=== PATIENT | female | born 1965 | race Caucasian/White ===

== ENCOUNTER 2017-09-07 10:48 | Emergency (ER) | payer BC, OTHER ==
[~2017-09-07] VITALS: Ht 157.5 cm; Wt 108.9 kg
--- NOTE | ~2017-09-07 | EKG ---
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
[2017-09-07] MEDS ORDERED: DIOVAN320 MG PO (11:13)
[2017-09-07] MEDS ORDERED: LASIX 40 MG TAB40 M2 PO (11:13)
[2017-09-07] MEDS ORDERED: METOPROLOL SUC100 MG PO (11:13)
[2017-09-07 12:41] LABS: HEMATOCRIT 37.6 % (37.0-47.0); MCH 29.8 pg (26.0-34.0); MCHC 31.9 g/dL (28.0-37.0); MCV 93.4 fL (80.0-100.0); PLATELET COUNT 176 thou/uL (150-400); RBC 4.02 mil/uL (4.20-5.00); RDW 17.6 % (10.5-14.5); WBC 7.3 thou/uL (4.0-11.0)
[2017-09-07 12:54] LABS: ANION GAP 13 mmol/L (7-16); BUN 68 mg/dL (7-18); CALCIUM 8.9 mg/dL (8.5-10.1); CHLORIDE 107 mmol/L (98-107); CO2 17 mmol/L (21-32); CREATININE 3.8 mg/dL (0.6-1.0); GLUCOSE 97 mg/dL (74-106); POTASSIUM 5.5 mmol/L (3.5-5.1); SODIUM 137 mmol/L (136-145)
[2017-09-07 13:03] LABS: ALBUMIN 3.5 g/dL (3.4-5.0); SGOT 18 U/L (15-37); SGPT 25 U/L (30-65); TOTAL BILIRUBIN 0.3 mg/dL (<0.1-1.0); TOTAL PROTEIN 8.2 g/dL (6.4-8.2); TROPONIN-I < 0.04 ng/mL (<0.06)
[2017-09-07 13:53] LABS: ABSOLUTE NEUTROPHILS 5.3 thou/uL (1.4-8.2); ANISOCYTOSIS 1+
[2017-09-07] MEDS ORDERED: PREDNISONE 20 M20 MG PO (15:37)
[2017-09-07] MEDS ORDERED: ALBUTEROL2.5 MG/31 INH (15:37)
[2017-09-07] MEDS ORDERED: TESSALON PERLE100 MG PO (15:37)
[2017-09-07 15:48] VITALS: BP 175/94
== END 2017-09-07 15:50 | disposition home or self-care (01) ==
LOC: ER 10:48
PROVIDERS: Nurse Practitioner Family
DX: J20.9 Acute bronchitis, unspecified (principal); I12.9 Hypertensive chronic kidney disease with stage 1 through stage 4 chronic kidney disease, or unspecified chronic kidney disease; N18.4 Chronic kidney disease, stage 4 (severe); E87.5 Hyperkalemia; N25.89 Other disorders resulting from impaired renal tubular function

== ENCOUNTER 2018-04-22 17:09 | Emergency (ER) | payer BC, OTHER ==
[~2018-04-22] VITALS: Ht 157.5 cm; Wt 106.6 kg
[~2018-04-22 17:09] MED LIST: ALBUTEROL2.5 MG/31 INH; DIOVAN320 MG PO; LASIX 40 MG TAB40 M2 PO; METOPROLOL SUC100 MG PO; PREDNISONE 20 M20 MG PO; TESSALON PERLE100 MG PO
[2018-04-22] MEDS ORDERED: HYDRALAZINE 2525 MG PO (17:47)
[2018-04-22] MEDS ORDERED: BENICAR40 MG PO (17:47)
[2018-04-22 17:48] LABS: ABSOLUTE NEUTROPHILS 5.1 thou/uL (1.4-8.2); BASOPHILS 0.8 % (0.0-2.0); EOSINOPHILS 4.8 % (0.0-3.0); HEMATOCRIT 34.9 % (37.0-47.0); HEMOGLOBIN 11.2 gm/dL (12.0-15.0); LYMPHOCYTES 13.2 % (24.0-44.0); MCH 29.8 pg (26.0-34.0); MONOCYTES 10.4 % (1.0-8.0); PLATELET COUNT 204 thou/uL (150-400); POLYS 70.8 % (36.0-66.0); RBC 3.76 mil/uL (4.20-5.00); WBC 7.2 thou/uL (4.0-11.0)
[2018-04-22 17:57] LABS: ANION GAP 10 mmol/L (7-16); BUN 60 mg/dL (7-18); CALCIUM 9.2 mg/dL (8.5-10.1); CHLORIDE 111 mmol/L (98-107); CO2 21 mmol/L (21-32); CREATININE 3.7 mg/dL (0.6-1.0); GLUCOSE 106 mg/dL (74-106); POTASSIUM 5.2 mmol/L (3.5-5.1); SODIUM 142 mmol/L (136-145)
[2018-04-22 18:05] LABS: ALBUMIN 3.1 g/dL (3.4-5.0); SGOT 25 U/L (15-37); SGPT 55 U/L (30-65); TOTAL BILIRUBIN 0.3 mg/dL (<0.1-1.0); TOTAL PROTEIN 6.9 g/dL (6.4-8.2); TROPONIN-I <0.06 ng/mL (<0.06)
[2018-04-22] MEDS ORDERED: DOXYCYCLINE 10100 MG PO (19:56)
[2018-04-22] MEDS ORDERED: PREDNISONE 20 M20 M1 PO (19:56)
[2018-04-22 20:04] VITALS: BP 145/76
--- NOTE | 2018-04-23 08:22 | EKG ---
[address] [employer] [place] [address] ELECTROCARDIOGRAM REPORT Name: INDIRA PARR 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 : 1965 Requested By: Ronni Llanes Order Number: [id number] MD: Franky Pennington Measurements Intervals [place] Rate: 73 P: 47 CT: 154 QRS: 52 QRSD: 92 T: 61 QT: 379 QTc: 418 Interpretive Statements Sinus rhythm No significant abnormality Compared to ECG 09/07/2017 11:37:24 No significant changes Electronically Signed On 04-23-2018 8:22:23 HAND FINISHER by Franky Pennington [email or web address] <ELECTRONICALLY SIGNED> By: Franky Pennington MD, [facility] 04/23/18 0822 1733 1733 Franky Pennington MD, FACC /EPI
== END 2018-04-22 20:04 | disposition home or self-care (01) ==
LOC: ER 17:09
PROVIDERS: Physician Assistant
DX: R05 Cough (principal); R06.02 Shortness of breath; R60.0 Localized edema; I12.9 Hypertensive chronic kidney disease with stage 1 through stage 4 chronic kidney disease, or unspecified chronic kidney disease; N18.4 Chronic kidney disease, stage 4 (severe)

== ENCOUNTER 2019-03-19 13:15 | Emergency (ER) | payer BC, OTHER ==
[~2019-03-19] VITALS: Ht 157.5 cm; Wt 88.5 kg
[~2019-03-19 13:15] MED LIST changes: +BENICAR40 MG PO; +DOXYCYCLINE 10100 MG PO; +HYDRALAZINE 2525 MG PO; +PREDNISONE 20 M20 M1 PO
[2019-03-19] MEDS ORDERED: PROAIR HFA8.5 GM INH (16:21)
[2019-03-19] MEDS ORDERED: TESSALON PERLE100 MG PO (16:21)
[2019-03-19] MEDS ORDERED: TAMIFLU75 MG PO (16:21)
[2019-03-19] MEDS ORDERED: PREDNISONE 20 M20 MG PO (16:21)
[2019-03-19 17:03] VITALS: BP 105/61
== END 2019-03-19 17:03 | disposition home or self-care (01) ==
LOC: ER 13:15
DX: J11.1 Influenza due to unidentified influenza virus with other respiratory manifestations (principal); N18.4 Chronic kidney disease, stage 4 (severe); I12.9 Hypertensive chronic kidney disease with stage 1 through stage 4 chronic kidney disease, or unspecified chronic kidney disease; Z98.890 Other specified postprocedural states

== ENCOUNTER 2019-04-02 20:07 | Inpatient (IN) | payer BC, OTHER ==
[~2019-04-02] VITALS: Ht 157.5 cm; Wt 95.3 kg
--- NOTE | ~2019-04-02 | HC ---
[facility] [place] [address] CONSULTATION Name: INDIRA PARR Room #: 464-P ADM IN M.R.#: [id number] Admission: 04/02/19 Attend Phys: Carolyn Ramos MD Discharge: Date of : 69 Report #: [id number] THIS REPORT FOR: //name// CC: Carolyn Rodriguez REASON FOR CONSULTATION: End-stage renal disease, maintained on peritoneal dialysis. REASON FOR PRESENTATION: Abdominal pain. HISTORY OF PRESENT ILLNESS: A 53-year-old who is a dialysis patient, maintained on peritoneal dialysis. She has started peritoneal dialysis 6 months ago. She is not aware the reason of her end-stage renal disease. She has history of hypertension. She tells me that she had an incident where her bladder was nicked during the surgery to place a PD catheter. The details of this event is not available for me. The patient has been having some abdominal pain on the last drain of her peritoneal dialysis. She presented for further evaluation. She denies any fever or chills. No previous peritonitis. She was found to have a tiny abdominal wall fluid collection to the right of the midline associated with what the patient describes as erythema around the area. PAST MEDICAL HISTORY: 1. End-stage renal disease. 2. Hypertension. 3. Recent PD catheter placement. 4. Right wrist surgery. MEDICATIONS: 1. Sodium bicarbonate. 2. Lasix. 3. Folic acid. 4. Calcitriol. 5. Sevelamer carbonate. ALLERGIES: None. SOCIAL HISTORY: She denies drug or alcohol abuse. FAMILY HISTORY: Significant for hypertension. REVIEW OF SYSTEMS: GENERAL: No fever or chills. CARDIOVASCULAR: No chest pain or palpitation. PULMONARY: No cough or hemoptysis. GASTROINTESTINAL: As per the history of present illness. GENITOURINARY: No frequency, no urgency. [facility] [address] [place] [address] CONSULTATION Name: SOLANGEMAHESHINDIRA Room #: 464-P [facility] IN ..#: [id number] Admission: 04/02/19 Attend Phys: Carolyn Ramos MD Discharge: Date of : 69 Report #: [id number] MUSCULOSKELETAL: No back pain, no muscle stiffness. SKIN: Slight induration around the PD catheter. NEUROLOGICAL: No headache, no dizziness. PHYSICAL EXAMINATION: GENERAL: She is alert, oriented. VITAL SIGNS: Blood pressure is 104/67, temperature is 37.2. HEAD AND NECK: No jugular venous distention. CHEST: Clear to auscultation bilaterally. CARDIOVASCULAR: Regular with no rub detected. ABDOMEN: Soft with no tenderness at all. Slight induration around the PD catheter exit site. LOWER EXTREMITIES: +1 edema. LABORATORY VALUES: Reviewed. White blood cell count was 12.8 yesterday and is down to 6.2. Sodium is 137, potassium is 5.5, BUN is 75, creatinine is 8.3. ASSESSMENT, IMPRESSION AND PLAN: 1. End-stage renal disease. 2. Peritoneal dialysis status. 3. Hypertension. 4. Seroma around the PD catheter. This does not seem to be a peritonitis event or episode. I will send the peritoneal fluid for further studies. This collection around the catheter seems to be a seroma and this could initiate what seems to be an exit site infection given the induration around her catheter. 5. Heart rate has an exit site infection with oral antibiotics, pending Gram stain, cell count, culture and sensitivity. 6. We will follow on those with the patient's primary retail service lead merchandiser to decide about appropriate antibiotic. 7. Continue the usual peritoneal dialysis regimen. By: 0837 31 Lizandro Logan MD /nt
[~2019-04-02 20:07] MED LIST changes: +PROAIR HFA8.5 GM INH; +TAMIFLU75 MG PO
[2019-04-02 20:09] VITALS: BP 102/58
[2019-04-02 21:07] LABS: ABSOLUTE NEUTROPHILS 10.7 thou/uL (1.4-8.2); BASOPHILS 0.5 % (0.0-2.0); EOSINOPHILS 0.4 % (0.0-3.0); HEMATOCRIT 29.9 % (37.0-47.0); HEMOGLOBIN 9.6 gm/dL (12.0-15.0); LYMPHOCYTES 7.4 % (24.0-44.0); MCH 32.7 pg (26.0-34.0); MCHC 32.1 g/dL (28.0-37.0); MONOCYTES 7.5 % (1.0-8.0); PLATELET COUNT 230 thou/uL (150-400); POLYS 84.2 % (36.0-66.0); RBC 2.93 mil/uL (4.20-5.00); RDW 14.8 % (10.5-14.5); WBC 12.8 thou/uL (4.0-11.0)
[2019-04-02 21:24] LABS: ANION GAP 12 mmol/L (7-16); BUN 74 mg/dL (7-18); CALCIUM 8.5 mg/dL (8.5-10.1); CHLORIDE 101 mmol/L (98-107); CO2 23 mmol/L (21-32); CREATININE 8.2 mg/dL (0.6-1.0); GLUCOSE 102 mg/dL (74-106); POTASSIUM 5.5 mmol/L (3.5-5.1); SODIUM 136 mmol/L (136-145)
[2019-04-02 21:30] LABS: ALBUMIN 2.5 g/dL (3.4-5.0); DIRECT BILIRUBIN < 0.1 mg/dL (<0.1-0.2); LIPASE 353 U/L (73-393); SGOT 26 U/L (15-37); SGPT 29 U/L (30-65); TOTAL BILIRUBIN 0.4 mg/dL (<0.1-1.0); TOTAL PROTEIN 6.8 g/dL (6.4-8.2)
[2019-04-02] MEDS ORDERED: ANTACID650 MG PO (21:47)
[2019-04-02] MEDS ORDERED: RENVELA800 MG PO (21:49)
[2019-04-02] MEDS ORDERED: RENAL-VITE TAB0.8 MG PO (21:49)
[2019-04-02] MEDS ORDERED: CALCITRIOL0.5 MCG PO (21:50)
[2019-04-02 23:11] VITALS: BP 130/86
[2019-04-02 23:27] VITALS: BP 130/86
[2019-04-02 23:45] VITALS: BP 124/68
[2019-04-03 04:09] VITALS: BP 119/60
[2019-04-03 07:21] LABS: HEMATOCRIT 28.8 % (37.0-47.0); HEMOGLOBIN 9.2 gm/dL (12.0-15.0); MCH 32.8 pg (26.0-34.0); MCHC 31.8 g/dL (28.0-37.0); MCV 103.1 fL (80.0-100.0); RBC 2.79 mil/uL (4.20-5.00); WBC 6.2 thou/uL (4.0-11.0)
[2019-04-03 07:25] LABS: CALCIUM 8.4 mg/dL (8.5-10.1); CREATININE 8.3 mg/dL (0.6-1.0); POTASSIUM 5.5 mmol/L (3.5-5.1)
[2019-04-03 07:30] VITALS: BP 104/67
[2019-04-03 15:25] VITALS: BP 110/67
[2019-04-03 16:59] LABS: BF NUCLEATED CELLS 5784; BF RBC 1146
[2019-04-03 17:04] LABS: TOTAL VOLUME 100 mL
[2019-04-03 17:05] LABS: CLARITY CLOUDY; COLOR STRAW
[2019-04-03 18:05] LABS: BF MACROPHAGE 6; BF NEUTROPHILS 93; SOURCE ABDOMINAL
[2019-04-03 19:35] VITALS: BP 111/60
[2019-04-04 08:35] VITALS: BP 100/64
[2019-04-04 20:45] VITALS: BP 100/60
[2019-04-04 23:07] LABS: HEPATITIS B SURFACE AG Negative (Negative)
[2019-04-05 08:00] VITALS: BP 109/58
[2019-04-05 15:00] VITALS: BP 108/58
[2019-04-05 19:11] VITALS: BP 111/69
[2019-04-06 07:48] VITALS: BP 123/75
[2019-04-06] MEDS ORDERED: TRAMADOL 50 MG50 MG PO (09:09)
[2019-04-06 09:23] LABS: CALCIUM 9.4 mg/dL (8.5-10.1); POTASSIUM 4.5 mmol/L (3.5-5.1)
[2019-04-06 09:25] LABS: CREATININE 6.6 mg/dL (0.6-1.0)
[2019-04-06 14:48] VITALS: BP 123/75
== END 2019-04-06 15:20 | disposition home or self-care (01) | DRG 919 ==
LOC: ER 20:07 → EROBS 22:57 → 4W 22:57 → ENTRNSPT 04-06 15:27 → EDTRNSPTSTS 04-06 15:30
PROVIDERS: Hospitalist; Nurse Practitioner; Nurse Practitioner Family; ADMIT Hospitalist
PROC: 5A1D70Z Performance of Urinary Filtration, Intermittent, Less than 6 Hours Per Day (ICD-10-PCS; principal; 2019-04-03)
PROC: 5A1D70Z Performance of Urinary Filtration, Intermittent, Less than 6 Hours Per Day (ICD-10-PCS; 2019-04-04)
PROC: 5A1D70Z Performance of Urinary Filtration, Intermittent, Less than 6 Hours Per Day (ICD-10-PCS; 2019-04-05)
DX: T85.71XA Infection and inflammatory reaction due to peritoneal dialysis catheter, initial encounter (principal); N18.6 End stage renal disease; K65.9 Peritonitis, unspecified; I12.0 Hypertensive chronic kidney disease with stage 5 chronic kidney disease or end stage renal disease; K91.872 Postprocedural seroma of a digestive system organ or structure following a digestive system procedure; K59.00 Constipation, unspecified; Y84.1 Kidney dialysis as the cause of abnormal reaction of the patient, or of later complication, without mention of misadventure at the time of the procedure; B95.61 Methicillin susceptible Staphylococcus aureus infection as the cause of diseases classified elsewhere; T85.898A Other specified complication of other internal prosthetic devices, implants and grafts, initial encounter; Z79.899 Other long term (current) drug therapy; Z82.49 Family history of ischemic heart disease and other diseases of the circulatory system; Y92.89 Other specified places as the place of occurrence of the external cause
CPT/HCPCS: 10040; 33000

== ENCOUNTER 2019-07-08 22:38 | Emergency (ER) | payer BC, OTHER ==
[~2019-07-08] VITALS: Ht 157.5 cm; Wt 93.0 kg
[~2019-07-08 22:38] MED LIST changes: +ANTACID650 MG PO; +CALCITRIOL0.5 MCG PO; +RENAL-VITE TAB0.8 MG PO; +RENVELA800 MG PO; +TRAMADOL 50 MG50 MG PO
[2019-07-08] MEDS ORDERED: RENVELA0.8 GM PO (22:48)
[2019-07-08 23:10] LABS: ABSOLUTE NEUTROPHILS 6.7 thou/uL (1.4-8.2); BASOPHILS 0.4 % (0.0-2.0); EOSINOPHILS 2.6 % (0.0-3.0); HEMATOCRIT 28.5 % (37.0-47.0); HEMOGLOBIN 9.8 gm/dL (12.0-15.0); LYMPHOCYTES 11.9 % (24.0-44.0); MCHC 34.5 g/dL (28.0-37.0); MCV 101.6 fL (80.0-100.0); PLATELET COUNT 211 thou/uL (150-400); POLYS 75.1 % (36.0-66.0); RBC 2.81 mil/uL (4.20-5.00); RDW 12.9 % (10.5-14.5)
[2019-07-08 23:11] LABS: URINE BILIRUBIN NEGATIVE (Negative); URINE BLOOD 1+ (Negative); URINE CLARITY SL CLOUDY; URINE COLOR YELLOW; URINE GLUCOSE-RANDOM* NEGATIVE (Negative); URINE KETONES NEGATIVE (Negative); URINE NITRITE-REFLEX NEGATIVE (Negative); URINE PROTEIN (DIPSTICK) 2+ (Negative); URINE UROBILINOGEN 0.2 E.U./dl (0.2-1.0)
[2019-07-08 23:14] LABS: URINE LEUKOCYTES-REFLEX 3+ (Negative)
[2019-07-08 23:21] LABS: SQUAMOUS 0-3 Few /LPF (0-3); URINE WBC-REFLEX >25 Many /HPF (0-5)
[2019-07-08 23:22] LABS: CASTS None Seen /LPF (None Seen); CRYSTALS None Seen /LPF (None Seen); URINE RBC 0-2 Rare /HPF (0-2)
[2019-07-08 23:29] LABS: ALBUMIN 3.1 g/dL (3.4-5.0); ANION GAP 15 mmol/L (7-16); BUN 84 mg/dL (7-18); CALCIUM 9.8 mg/dL (8.5-10.1); CHLORIDE 99 mmol/L (98-107); CO2 23 mmol/L (21-32); CREATININE 11.6 mg/dL (0.6-1.0); GLUCOSE 98 mg/dL (74-106); LIPASE 258 U/L (73-393); SGOT 31 U/L (15-37); SGPT 26 U/L (30-65); SODIUM 137 mmol/L (136-145); TOTAL BILIRUBIN 0.4 mg/dL (<0.1-1.0); TOTAL PROTEIN 7.6 g/dL (6.4-8.2); TROPONIN-I <0.06 ng/mL (<0.06)
[2019-07-08 23:30] LABS: POTASSIUM 6.1 mmol/L (3.5-5.1)
[2019-07-09] MEDS ORDERED: PRILOSEC OTC20 MG PO (01:29)
[2019-07-09] MEDS ORDERED: TRAMADOL 50 MG50 MG PO (01:29)
[2019-07-09] MEDS ORDERED: ONDANSETRON ODT8 MG PO (01:29)
[2019-07-09 01:51] VITALS: BP 118/59
--- NOTE | 2019-07-09 09:58 | EKG ---
[facility] [place] [address] ELECTROCARDIOGRAM REPORT Name: INDIRA PARR Room #: DEP [facility]#: [id number] Admission: 07/08/19 Attend Phys: Discharge: 07/09/19 Date of : 69 Report #: [id number] THIS REPORT FOR: cc: Pallavi Rodriguez Diane C. 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: : 1965 Requested By: Dar Kraft Order Number: [id number] MD: Franky Pennington Measurements Intervals [place] Rate: 67 P: 35 [place]: 156 QRS: 50 QRSD: 94 T: 67 QT: 432 QTc: 456 Interpretive Statements Sinus rhythm Consider left ventricular hypertrophy Compared to ECG 04/22/2018 17:33:58 No significant change was found Electronically Signed On 07-09-2019 9:57:22 CDT by Franky Pennington [email or web address] <ELECTRONICALLY SIGNED> By: Franky Pennington MD, FAC 07/09/19 0957 2313 2313 Franky Pennington MD, [facility] /EPI
== END 2019-07-09 02:00 | disposition home or self-care (01) ==
LOC: ER 22:38
PROVIDERS: Emergency Medicine
DX: R10.13 Epigastric pain (principal); R10.10 Upper abdominal pain, unspecified; I12.0 Hypertensive chronic kidney disease with stage 5 chronic kidney disease or end stage renal disease; K21.9 Gastro-esophageal reflux disease without esophagitis; N18.6 End stage renal disease; R11.2 Nausea with vomiting, unspecified; F17.210 Nicotine dependence, cigarettes, uncomplicated; Z79.899 Other long term (current) drug therapy; Z88.6 Allergy status to analgesic agent; Z99.2 Dependence on renal dialysis

== ENCOUNTER 2019-07-23 17:43 | Emergency (ER) | payer BC, OTHER ==
[~2019-07-23] VITALS: Ht 157.5 cm; Wt 95.3 kg
[~2019-07-23 17:43] MED LIST changes: +ONDANSETRON ODT8 MG PO; +PRILOSEC OTC20 MG PO; +RENVELA0.8 GM PO
[2019-07-23 18:46] LABS: ABSOLUTE NEUTROPHILS 7.1 thou/uL (1.4-8.2); BASOPHILS 0.3 % (0.0-2.0); EOSINOPHILS 0.9 % (0.0-3.0); HEMATOCRIT 30.9 % (37.0-47.0); HEMOGLOBIN 10.4 gm/dL (12.0-15.0); LYMPHOCYTES 7.9 % (24.0-44.0); MCH 34.8 pg (26.0-34.0); MCHC 33.6 g/dL (28.0-37.0); MCV 103.4 fL (80.0-100.0); MONOCYTES 9.5 % (1.0-8.0); PLATELET COUNT 205 thou/uL (150-400); POLYS 81.4 % (36.0-66.0); RBC 2.99 mil/uL (4.20-5.00); RDW 14.5 % (10.5-14.5); WBC 8.7 thou/uL (4.0-11.0)
[2019-07-23 18:55] LABS: CALCIUM 9.5 mg/dL (8.5-10.1); CREATININE 11.1 mg/dL (0.6-1.0); POTASSIUM 4.6 mmol/L (3.5-5.1)
[2019-07-23 19:02] LABS: ALBUMIN 3.3 g/dL (3.4-5.0); TOTAL BILIRUBIN 0.8 mg/dL (<0.1-1.0); TOTAL PROTEIN 7.5 g/dL (6.4-8.2)
[2019-07-23 20:44] LABS: URINE BILIRUBIN NEGATIVE (Negative); URINE BLOOD TRACE (Negative); URINE CLARITY CLEAR; URINE COLOR YELLOW; URINE GLUCOSE-RANDOM* NEGATIVE (Negative); URINE KETONES NEGATIVE (Negative); URINE LEUKOCYTES-REFLEX NEGATIVE (Negative); URINE NITRITE-REFLEX NEGATIVE (Negative); URINE PROTEIN (DIPSTICK) 2+ (Negative); URINE UROBILINOGEN 0.2 E.U./dl (0.2-1.0)
[2019-07-23 21:01] LABS: BACTERIA-REFLEX 1-9 Few /HPF (None Seen); CASTS None Seen /LPF (None Seen); CRYSTALS None Seen /LPF (None Seen); MUCUS 0-3 Light strn/LPF (None Seen); SQUAMOUS >10 Many /LPF (0-3); URINE RBC 0-2 Rare /HPF (0-2); URINE WBC-REFLEX 0-5 Rare /HPF (0-5)
[2019-07-23] MEDS ORDERED: CARAFATE 1 GM TA1 G1 PO (22:49)
[2019-07-23] MEDS ORDERED: PROTONIX40 MG PO (22:49)
[2019-07-23] MEDS ORDERED: ZOFRAN ODT4 MG PO (22:49)
[2019-07-23] MEDS ORDERED: ULTRAM 50MG TAB50 MG PO (22:49)
[2019-07-23 23:06] VITALS: BP 127/72
== END 2019-07-23 23:19 | disposition home or self-care (01) ==
LOC: ER 17:43
PROVIDERS: Emergency Medicine
DX: R10.13 Epigastric pain (principal); R11.2 Nausea with vomiting, unspecified; K21.9 Gastro-esophageal reflux disease without esophagitis; I12.9 Hypertensive chronic kidney disease with stage 1 through stage 4 chronic kidney disease, or unspecified chronic kidney disease; N18.4 Chronic kidney disease, stage 4 (severe); F17.210 Nicotine dependence, cigarettes, uncomplicated; Z99.2 Dependence on renal dialysis; Z79.899 Other long term (current) drug therapy; Z88.6 Allergy status to analgesic agent

== ENCOUNTER 2020-07-08 18:53 | Inpatient (IN) | payer BC, OTHER ==
[~2020-07-08] VITALS: Ht 157.5 cm; Wt 85.3 kg
[~2020-07-08 18:53] MED LIST changes: +CARAFATE 1 GM TA1 G1 PO; +PROTONIX40 MG PO; +ULTRAM 50MG TAB50 MG PO; +ZOFRAN ODT4 MG PO
[2020-07-08 19:13] VITALS: BP 130/78
[2020-07-08 19:29] LABS: ABSOLUTE NEUTROPHILS 11.1 thou/uL (1.4-8.2); BASOPHILS 0.3 % (0.0-2.0); EOSINOPHILS 0.5 % (0.0-3.0); HEMATOCRIT 33.9 % (37.0-47.0); HEMOGLOBIN 11.4 gm/dL (12.0-15.0); MCH 33.5 pg (26.0-34.0); MCHC 33.5 g/dL (28.0-37.0); MCV 100.1 fL (80.0-100.0); MONOCYTES 6.9 % (1.0-8.0); PLATELET COUNT 247 thou/uL (150-400); POLYS 88.3 % (36.0-66.0); RBC 3.39 mil/uL (4.20-5.00); RDW 15.1 % (10.5-14.5); WBC 12.6 thou/uL (4.0-11.0)
[2020-07-08 19:38] LABS: ANION GAP 20 mmol/L (7-16); BUN 104 mg/dL (7-18); CALCIUM 9.4 mg/dL (8.5-10.1); CHLORIDE 91 mmol/L (98-107); CO2 23 mmol/L (21-32); CREATININE 16.8 mg/dL (0.6-1.0); GLUCOSE 101 mg/dL (74-106); SODIUM 134 mmol/L (136-145)
[2020-07-08 19:48] LABS: ALBUMIN 2.8 g/dL (3.4-5.0); LIPASE 124 U/L (73-393); SGOT 23 U/L (15-37); SGPT 24 U/L (14-59); TOTAL BILIRUBIN 0.6 mg/dL (0.2-1.0); TOTAL PROTEIN 7.6 g/dL (6.4-8.2); TROPONIN-I <0.06 ng/mL (<0.06)
[2020-07-08 19:52] LABS: URINE BILIRUBIN NEGATIVE (Negative); URINE BLOOD 1+ (Negative); URINE CLARITY CLEAR; URINE COLOR YELLOW; URINE GLUCOSE-RANDOM* NEGATIVE (Negative); URINE KETONES NEGATIVE (Negative); URINE LEUKOCYTES-REFLEX NEGATIVE (Negative); URINE NITRITE-REFLEX NEGATIVE (Negative); URINE PROTEIN (DIPSTICK) 2+ (Negative); URINE UROBILINOGEN 0.2 E.U./dl (0.2-1.0)
[2020-07-08 20:04] LABS: BACTERIA-REFLEX 1-9 Few /HPF (None Seen); CASTS None Seen /LPF (None Seen); CRYSTALS None Seen /LPF (None Seen); SQUAMOUS 0-3 Few /LPF (0-3); URINE RBC 3-10 Few /HPF (0-2); URINE WBC-REFLEX 0-5 Rare /HPF (0-5)
[2020-07-08 21:29] VITALS: BP 129/82
--- NOTE | 2020-07-08 21:29 | NUR ---
[facility] CALLED AND GIVEN UPDATE ON POC FOR PATIENT AFTER CONSENT RECEIVED FROM PATIENT.
[2020-07-08 21:35] VITALS: BP 129/82
[2020-07-08 21:40] LABS: BF RBC 1279 /mm3; CLARITY HAZY; COLOR YELLOW; SOURCE PERITONEAL; TOTAL VOLUME 30 mL
[2020-07-08 21:41] LABS: BF NUCLEATED CELLS 2075 /mm3
[2020-07-08 22:10] VITALS: BP 119/69
[2020-07-08 22:41] LABS: BF MACROPHAGE 20 %; BF NEUTROPHILS 19 %
[2020-07-08 22:44] VITALS: BP 127/77
--- NOTE | 2020-07-09 00:19 | NUR ---
ADMIT FROM HOME THROUGH ED. PT HAS HAD DRY HEAVES NAUSEA AND ABD PAIN FOR 3 DAYS, LOCATED CENTER TO UPPER GASTRIC. PT HAD BM, NO DIARRHEA. PT HAS ABD HERNIA AND IS PERITONEAL DIALYSIS PT. RLQ CATHETER LOCATED ABD, PT DOES DIALYSIS DURING THE DAY SHE WORKS AT NIGHT. COY FISTULA. PALE SKIN TONE WITH SKIN RASH OVER BODY PER PT FROM DIALYSIS. ABD DISTENDED SOFT BS ACTIVE CT PER ED SHOWES DISTENDED SMALL BOWEL LOOP IN THE UPPER ABD. PT VERBALIZED UNDERSTANDING NPO STATUS. IVF INTACT. PT AMBULATES WITH CANE. RENAL DR NOTIFIED OF CONSULT AND ADMISSION, STATED HE WILL ADDRESS PD IN THE AM AND NURSING STAFFING COORDINATOR, PHARMACIST UPDATED.
[2020-07-09 04:45] LABS: CALCIUM 8.5 mg/dL (8.5-10.1); CREATININE 16.4 mg/dL (0.6-1.0); HEMATOCRIT 28.5 % (37.0-47.0); MCH 33.1 pg (26.0-34.0); MCHC 32.9 g/dL (28.0-37.0); MCV 100.5 fL (80.0-100.0); RBC 2.84 mil/uL (4.20-5.00); RDW 14.9 % (10.5-14.5); WBC 10.9 thou/uL (4.0-11.0)
[2020-07-09 04:51] LABS: HEMOGLOBIN 9.4 gm/dL (12.0-15.0)
[2020-07-09 05:04] VITALS: BP 109/58
[2020-07-09 07:25] VITALS: BP 113/68
[2020-07-09 15:45] VITALS: BP 113/70
--- NOTE | 2020-07-09 16:47 | NUR ---
care assumed at 0700, pt alert and oriented x4, denies nausea and vomitting. stated abdominal pain is tolerable. on room air, no signs of ditress noted. Peritoneal dialysis cath in place, clean, dry and intact . up to bathroom independent with a can. dr. guillermo rounding and stated can starting as tolerated. denies any needs at moment. will continue to monitor.
[2020-07-09 19:17] VITALS: BP 118/75
--- NOTE | 2020-07-09 20:32 | NUR ---
PT RESTING IN BED, PD ATTACHED. PT TALKING ON PHONE WITH . PALE SKIN TONE REMAINS. ABD DISTENDED. PT DECLINED HEPARIN. DIALYSIS NURSE EXPLAINED THAT BAG 4 OUT OF 5 IS ANTIBIOTICS AND IF IT DOES NOT RUN, TO CALL HER AND SHE LEFT THE NUMBER.
--- NOTE | 2020-07-09 22:10 | NUR ---
PT REPORTED TO NURSE FEELING PRESSURE FROM FLUID IN ABD, WANTING SOMETHING TO HELP HER SLEEP. VERBALIZED SHE WONDERS IF ALL THIS FLUID IS CAUSING HER HERNIA. SHE FEELS IT PUTS PRESSURE ON HER ABILITY TO BREATH. PT ASKED FOR SANDWICH TRAY STATING SHE DID NOT EAT DINNER AND PROVIDED. PROVIDER FIELD HORTICULTURAL SPECIALTY GROWER PAGED AND UPDATED, NEW ORDER OBTAINED.
--- NOTE | 2020-07-10 00:42 | NUR ---
PT CALLED OUT SOBBING C/O SEVER ABD PAIN. PD ON DRAIN [address] MONTALVO SOFTWARE RELEASE ENGINEER AND UPDATED. PRN FOR PAIN ORDERED AND NURSE TO CALL RENAL DR TO SEE IF HE WANTS PD STOPPED.
[2020-07-10 00:47] VITALS: BP 96/32
--- NOTE | 2020-07-10 01:08 | NUR ---
PT PROVIDED PRN FOR PAIN AND PT REPORTED RELIEF AND STATED SHE IS NOW ABLE TO SLEEP, SOBBING AND CRYING STOPPED. PT STATED THANK YOU. RENAL DR DID NOT RETURN PHONE CALL.
[2020-07-10 04:34] VITALS: BP 116/71
--- NOTE | 2020-07-10 04:45 | NUR ---
RENAL DR RETURNED CALLED AND UPDATED RE PTS C/O LLQ PAIN, CRYING SOBBING, RELIEF WITH FENTANYL. AND THAT PRN FENTANYL ORDER IS STILL AVAILABLE. NO NEW ORDERS.
[2020-07-10 07:42] VITALS: BP 126/75
--- NOTE | 2020-07-10 07:42 | NUR ---
care assumed this am, pt continue to be on her peritoneal dialysis. called the dialysis nurse and she said she will notified the dialysis nurse wellness consultant. pt notified. assessment completed. denies any pain. will continue to monitor.
[2020-07-10 15:17] VITALS: BP 133/76
[2020-07-10 19:14] VITALS: BP 141/86
--- NOTE | 2020-07-10 21:28 | HC ---
[facility] [place] [address] CONSULTATION Name: INDIRA PARR Room #: 359-P ADM IN M.R.#: [id number] Admission: 07/08/20 Attend Phys: Mann Duran MD Discharge: Date of : 69 Report #: [id number] THIS REPORT FOR: cc: Pallavi Rodriguez Diane C. DO Al-Absi,Lizandro Pate MD ~ REASON FOR CONSULTATION: End-stage renal disease. REASON FOR PRESENTATION: Abdominal pain. HISTORY OF PRESENT ILLNESS: A 55-year-old who is well known to me from a previous admission. She has end-stage renal disease. She is maintained on peritoneal dialysis. She presented with abdominal pain. This was similar to her previous abdominal pain that we evaluated back in 03/2019. This was consistent with peritonitis. She also had some associated nausea and vomiting. No fever or chills. The patient was admitted for further evaluation. I was consulted to manage her end-stage renal disease. She had an episode of MSSA peritonitis back in 03/2019. PAST MEDICAL AND SURGICAL HISTORY: 1. End-stage renal disease. 2. Hypertension. 3. PD catheter placement. 4. Right wrist surgery. ALLERGIES: None. SOCIAL HISTORY: No drug or alcohol abuse. FAMILY HISTORY: Hypertension. REVIEW OF SYSTEMS: GENERAL: No fever or chills. CARDIOVASCULAR: No chest pain or palpitation. PULMONARY: No cough or hemoptysis. GASTROINTESTINAL: As per the history of present illness. MUSCULOSKELETAL: No muscle cramps, no back pain. SKIN: Significant skin rash over both upper extremities and lower extremities. NEUROLOGICAL: No headache, no dizziness. MEDICATIONS: Currently, the patient is maintained on sevelamer, Lasix, metoprolol, omeprazole, folic acid, calcitriol. PHYSICAL EXAMINATION: GENERAL: Blood pressure 109/58, temperature 36.6, pulse rate 97, respiratory rate 16. [facility] [address] [place] [address] CONSULTATION Name: INDIRA PRAR Room #: 359-P [facility].#: [id number] Admission: 07/08/20 Attend Phys: Mann Duran MD Discharge: Date of : 69 Report #: [id number] HEAD AND NECK: No jugular venous distention. CHEST: No crackles. CARDIOVASCULAR: No rub. ABDOMEN: Slight tenderness in the mid abdomen PD catheter. EXTREMITIES: Lower extremities, significant for rash. Rashes also present over upper extremities. LABORATORY VALUES: Sodium 136, potassium 5, BUN 99, creatinine 16.4. Initiate peritoneal fluid revealed that the patient nucleated cells at 2075. ASSESSMENT AND PLAN: 1. End-stage renal disease. 2. Peritonitis. 3. Hyperkalemia, on arrival. 4. Leukocytosis. 5. The patient has yet another episode of peritonitis and we will treat with intraperitoneal antibiotics. 6. Dialysis tonight. 7. Add appropriate antibiotic to the last fill. 8. Unfortunately with her recurrent issues, PD might not be her best option; however, she will have to discuss that with her food processing chemist. 9. I do not think that her pain is related to her hernia. I do not think she will need any surgical intervention at this point. <ELECTRONICALLY SIGNED> By: Lizandro Logan MD 07/10/20 2128 0659 0829 Lizandro Logan MD /nt
[2020-07-11 04:05] VITALS: BP 112/68
--- NOTE | 2020-07-11 04:37 | NUR ---
Medicated for pain x1 with good relief. Peritoneal dialysis completed. She declined sleep med stating it didn't work for her the night before then she requested it around 0227 because she can't sleep. Despite that she said she didn't sleep much either. Denies any other concern at this time.
[2020-07-11 08:21] VITALS: BP 129/87
--- NOTE | 2020-07-11 09:12 | EKG ---
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 : 1965 Requested By: Brittani Spring Order Number: [id number] MD: Franky Pennington Measurements Intervals [place] Rate: 82 P: 34 DC: 149 QRS: 44 QRSD: 91 T: 112 QT: 378 QTc: 442 Interpretive Statements Sinus rhythm Consider left ventricular hypertrophy Nonspecific ST segment abnormality Compared to ECG 07/08/2019 23:13:45 T-wave abnormality now present Electronically Signed On 07-11-2020 9:11:50 CDT by Franky Pennington [email or web address] <ELECTRONICALLY SIGNED> By: Franky Pennington MD, [facility] 07/11/20910 19 19 Franky Pennington MD, FAC /EPI
--- NOTE | 2020-07-11 10:11 | NUR ---
RD consulted. Admit with abdominal pain and umbilical hernia. Has hx hernia repair. Also hx peritoneal dialysis. Diet has been able to advance and tolerating well. Pt voiced no questions regarding renal diet order. Does have possible wt loss ~20 lb since March, however pt reported she had hx fluid overload from kidney disease. Low nutrition risk
[2020-07-11 10:48] LABS: HEMOGLOBIN 9.4 gm/dL (12.0-15.0); MCH 32.8 pg (26.0-34.0); MCHC 32.4 g/dL (28.0-37.0); MCV 101.2 fL (80.0-100.0); RBC 2.86 mil/uL (4.20-5.00); RDW 15.4 % (10.5-14.5); WBC 7.7 thou/uL (4.0-11.0)
[2020-07-11 11:02] LABS: CALCIUM 9.1 mg/dL (8.5-10.1); POTASSIUM 4.2 mmol/L (3.5-5.1)
[2020-07-11 11:03] LABS: CREATININE 12.4 mg/dL (0.6-1.0)
[2020-07-11] MEDS ORDERED: DOXYCYCLINE HYC50 MG PO (14:42)
--- NOTE | 2020-07-11 14:56 | NUR ---
INITIAL ASSESSMENT/DISCHARGE NOTE: Received consult. MARLEN reviewed chart and spoke with nursing and attending physician. Pt was admitted from home due to abdominal pain/nausea. Pt with hx of ESRD and does peritoneal dialysis at home. General surgery evaluated pt and recommend hernia surgery. Pt declines surgical intervention at this time. Pt to follow up as an outpatient. Pt is medically stable for discharge home today. Pt will need IV abx following dialysis. MARLEN met with pt at bedside. Introduced role of SW. Pt is alert/orientated. P reports she lives at home with her family. Prior to admission, pt was independent with ADLs. Pt states her peritoneal dialysis is through [facility] and she has already spoken with her clinic to arrange the delivery of IV abx and supplies. Pt states she already has some abx at home and they will be sending her additional doses. MARLEN spoke with [place] at [facility] clinic, who manages pt's home dialysis. MARLEN faxed requested clinical info to the clinic for review. [place] confirms that the pt's abx have been ordered. Pt will have transportation home. No additional SW needs identified at this time, but is available to assist should needs arise.
[2020-07-11] MEDS ORDERED: TRAMADOL 50 MG50 MG PO (15:12)
[2020-07-11 15:21] VITALS: BP 129/87
== END 2020-07-11 16:12 | disposition home or self-care (01) | DRG 919 ==
LOC: ER 18:53 → 3W 21:05 → EROBS 21:05 → 3W 21:58
PROVIDERS: Emergency Medicine; Internal Medicine; Nurse Practitioner Family; ADMIT Hospitalist; ATTEND Hospitalist
PROC: 3E1M39Z Irrigation of Peritoneal Cavity using Dialysate, Percutaneous Approach (ICD-10-PCS; principal; 2020-07-09)
PROC: 3E1M39Z Irrigation of Peritoneal Cavity using Dialysate, Percutaneous Approach (ICD-10-PCS; 2020-07-10)
PROC: 3E1M39Z Irrigation of Peritoneal Cavity using Dialysate, Percutaneous Approach (ICD-10-PCS; 2020-07-11)
DX: T85.71XA Infection and inflammatory reaction due to peritoneal dialysis catheter, initial encounter (principal); N18.6 End stage renal disease; K65.9 Peritonitis, unspecified; A41.01 Sepsis due to Methicillin susceptible Staphylococcus aureus; I12.0 Hypertensive chronic kidney disease with stage 5 chronic kidney disease or end stage renal disease; K42.0 Umbilical hernia with obstruction, without gangrene; E87.5 Hyperkalemia; K46.9 Unspecified abdominal hernia without obstruction or gangrene; Y84.1 Kidney dialysis as the cause of abnormal reaction of the patient, or of later complication, without mention of misadventure at the time of the procedure; B95.61 Methicillin susceptible Staphylococcus aureus infection as the cause of diseases classified elsewhere; M19.079 Primary osteoarthritis, unspecified ankle and foot; D64.9 Anemia, unspecified; Z79.899 Other long term (current) drug therapy; Z88.5 Allergy status to narcotic agent; Z99.2 Dependence on renal dialysis; Z87.891 Personal history of nicotine dependence; Y92.89 Other specified places as the place of occurrence of the external cause
CPT/HCPCS: 10879; 33000